=== PATIENT | female | born 1995 | race American Indian/Alaskan Native ===

== ENCOUNTER 2016-10-03 21:39 | Emergency (ER) | payer SELFPAY ==
[2016-10-03 23:02] LABS: Basophils % (Auto) 0.2 % (0.0-1.8); Eosinophils % (Auto) 1.1 % (0.0-4.3); Hematocrit 39.7 % (30.3-42.9); Mean Corpuscular HGB Conc 33 % (30-34); Mean Corpuscular Hemoglobin 31 pg (28-32); Mean Corpuscular Volume 94 fl (79-97); Platelet Count 192 K/mm3 (140-440); Red Blood Count 4.25 M/mm3 (3.65-5.03); Red Cell Distribution Width 12.7 % (13.2-15.2); White Blood Count 9.8 K/mm3 (4.5-11.0)
[2016-10-03 23:20] LABS: Alanine Aminotransferase 8 units/L (7-56); Albumin 4.4 g/dL (3.9-5); Albumin/Globulin Ratio 1.5 %; Alkaline Phosphatase 69 units/L (35-129); Anion Gap 17 mmol/L; BUN/Creatinine Ratio 11.25; Bilirubin,Total 0.5 mg/dL (0.1-1.2); Blood Urea Nitrogen 9 mg/dL (7-17); Carbon Dioxide 24 mmol/L (22-30); Chloride 101.7 mmol/L (98-107); Glucose 90 mg/dL (65-100); Lipase 29 units/L (13-60); Potassium 4.6 mmol/L (3.6-5.0); Sodium 138 mmol/L (137-145); Total Protein 7.3 g/dL (6.3-8.2)
[2016-10-04 04:14] LABS: Bilirubin,Urine NEG (Negative); Blood,Urine NEG (Negative); Ketones,Urine NEG (Negative); Leukocyte Esterase,Urine NEG (Negative); Mucus,Urine 3+ /HPF; Nitrite,Urine NEG (Negative); Protein,Urine <15 mg/dL mg/dL (Negative); Urobilinogen,Urine < 2.0 mg/dL (<2.0)
[2016-10-04] MEDS ORDERED: ZOFRAN ODT PO ONE ×3 (04:38→05:54)
[2016-10-04] MEDS ORDERED: NORCO 5/325 PO ONE (04:38)
[2016-10-04] MEDS ORDERED: MOTRIN PO ONE (04:38)
[2016-10-04] MEDS ORDERED: ZITHROMAX PO ONE (05:09)
[2016-10-04] MEDS ORDERED: ROCEPHIN IM ONE (05:09)
[2016-10-04] MEDS ORDERED: XYLOCAINE 1% MPF 5 mL INFILTRATI ONE (05:09)
[2016-10-04] MEDS ORDERED: FLAGYL PO ONE (05:45)
--- NOTE | 2016-10-04 05:54 | Emergency Department Report ---
HPI - General Chief Complaint: Abdominal Pain Time Seen by Provider: 10/04/16 04:26 - HPI HPI: The patient is a 21-year-old female who presents for evaluation of abdominal pain. The patient reports on and off abdominal pain for the past 5 days, crampy in quality, generalized, moderate in severity, exacerbated with retching , and associated with severe nausea without emesis, and multiple episodes of loose watery stools. She has a secondary complaint of copious vaginal discharge , foul-smelling, present for the past 2 weeks. The patient denies fever, chills , night sweats, blood in the stool, dark tarry stool, dysuria, hematuria, flank pain, dysuria, vaginal bleeding. ED Past Medical Hx - Past Medical History Previous Medical History?: No - Surgical History Past Surgical History?: No - Social History Smoking Status: Former Smoker Substance Use Type: None - Medications Home Medications: Home Medications Medication Instructions Recorded Confirmed Last Taken Type metroNIDAZOLE [Flagyl] 500 mg PO BID #14 tablet 08/11/13 Unknown Rx Acetaminophen/Codeine [Tylenol #3] 1 tab PO Q6H PRN #12 tab 10/04/16 Unknown Rx Ondansetron [Zofran TAB] 4 mg PO Q8HR PRN #15 tablet 10/04/16 Unknown Rx metroNIDAZOLE [Flagyl] 500 mg PO Q12HR #14 tab 10/04/16 Unknown Rx ED Review of Systems ROS: Stated complaint: STOMACH PAIN/VOMITING/DIARRHEA Other details as noted in HPI Constitutional: denies: fever ENT: denies: throat or neck pain Respiratory: denies: cough, shortness of breath Cardiovascular: denies: chest pain Endocrine: denies unexplained weight loss or gain Gastrointestinal: reports abdominal pain, nausea Genitourinary: reports vaginal discharge denies: dysuria Musculoskeletal: denies: leg swelling Skin: denies: rash Neurological: denies: headache Hematological/Lymphatic: denies: easy bleeding or easy bruising Psych: denies sadness or hopelessness Physical Exam - Physical Exam Vital Signs: Vital Signs 10/03/16 10/04/16 10/04/16 22:10 04:13 04:26 Temperature 99 F 97.9 F Pulse Rate 101 H 90 Respiratory 12 Rate Blood Pressure 123/79 Blood Pressure 128/78 [Left] O2 Sat by Pulse 100 99 Oximetry Physical Exam: General: well-nourished, well-developed, no acute distress Head: Normocephalic, atraumatic Eyes: normal sclera ENT: Mucous membranes are pink and moist Neck: trachea midline, neck supple, No neck stiffness, no cervical adenopathy Respiratory: Breath sounds equal bilaterally, no wheezing, rales, or rhonchi Cardio: S1 and S2 present, no murmurs, rubs, gallops, capillary refill is brisk Abdomen: Normoactive bowel sounds, soft abdomen, generalized tenderness to palpation present, no rigidity, no guarding or rebound tenderness : copious white mucousy discharge present in the vaginal canal and cervical os , no cervical motion tenderness, no adnexal tenderness Musc: No pitting edema Skin: No rash Neuro: no facial drooping, normal speech Psych: Normal affect ED Course Vital Signs 10/03/16 10/04/16 10/04/16 22:10 04:13 04:26 Temperature 99 F 97.9 F Pulse Rate 101 H 90 Respiratory 12 Rate Blood Pressure 123/79 Blood Pressure 128/78 [Left] O2 Sat by Pulse 100 99 Oximetry ED Medical Decision Making - Lab Data Result diagrams: 10/03/16 22:43 10/03/16 22:43 - Medical Decision Making The patient was seen and examined by myself. The patient is placed on a classroom monitor and continuous pulse ox. On initial evaluation, the patient was found to be in no distress. Evaluation orders are placed. The patient is given a tablet of Motrin and Stehekin for her pain. She is given Zofran for her nausea. Pelvic exam was performed under supervision of [facility] [place]. Lab results reveal elevated clue cells on wet prep, and otherwise labs were non-concerning including WBC, hemoglobin, hematocrit, electrolytes, renal function, LFTs, lipase, urinalysis, and neg preg test. The patient is given Flagyl for treatment of BV. She requests treatment for STDs as well. She is given an IM dose of Rocephin and 1 g of azithromycin for treatment of cervicitis. The patient was reevaluated and reported that their symptoms were markedly improved. The patient is stable for discharge with outpatient follow-up. The patient is given follow-up and return instructions. The patient expressed understanding and agreed with the plan. The patient is discharged in stable condition. Critical care attestation.: If time is entered above; I have spent that time in minutes in the direct care of this critically ill patient, excluding procedure time. ED Disposition Clinical Impression: Bacterial vaginosis, Abdominal pain, acute, periumbilical Disposition: DISCHARGED TO HOME OR SELFCARE Is pt being admited?: No Does the pt Need Aspirin: No Condition: Stable Instructions: Abdominal Pain (ED), Bacterial Vaginosis (ED), Gastroenteritis ( ED) Referrals: PRIMARY CARE, [Primary Care Provider] - 3-5 Days Forms: STI Treatment and Prevention Time of Disposition: 05:45
[2016-10-04 06:34] VITALS: BP 121/80
[2016-10-04] MEDS ORDERED: ZOFRAN PO ONE ×2 (07:00)
== END 2016-10-04 06:36 | disposition home or self-care (01) ==
LOC: ED 21:39
DX: N76.0 Acute vaginitis (principal); B96.89 Other specified bacterial agents as the cause of diseases classified elsewhere; R10.33 Periumbilical pain; Z87.891 Personal history of nicotine dependence
CPT/HCPCS: 36415; 80053; 81001; 81025; 83690; 85025; 87210; 87591; 96372; 99284; J0696; Q0162